=== PATIENT | male | born 1995 | race Two or more races ===

== ENCOUNTER 2018-09-21 09:48 | Emergency (ER) | payer SELFPAY ==
[~2018-09-21] VITALS: Ht 172.7 cm; Wt 61.2 kg
[2018-09-21] MEDS ORDERED: cefTRIAXone SOD 1,000 MG VL IM ONE (11:15)
[2018-09-21 11:26] VITALS: BP 124/83
== END 2018-09-21 11:59 | disposition home or self-care (01) ==
LOC: ER 09:48
DX: L02.415 Cutaneous abscess of right lower limb (principal); Z88.8 Allergy status to other drugs, medicaments and biological substances
CPT/HCPCS: 96372; 99283; J0696

== ENCOUNTER 2021-10-27 17:25 | Emergency (ER) | payer SELFPAY ==
[~2021-10-27] VITALS: Ht 172.7 cm; Wt 68.0 kg
[2021-10-27 17:27] VITALS: BP 137/90
== END 2021-10-27 22:59 | disposition left against medical advice (07) ==
LOC: ER 17:25
DX: R05.9 Cough, unspecified (principal); Z53.21 Procedure and treatment not carried out due to patient leaving prior to being seen by health care provider

== ENCOUNTER 2022-05-11 20:36 | Emergency (ER) | payer SELFPAY | END 2022-05-12 01:04 | LOC: ER 20:57 | DX: I10 Essential (primary) hypertension (principal) ==

== ENCOUNTER 2022-06-09 21:45 | Emergency (ER) | payer MEDICAID ==
[~2022-06-09] VITALS: Ht 172.7 cm; Wt 68.2 kg
[2022-06-10] MEDS ORDERED: IBUP800T27 PO (01:10)
[2022-06-10] MEDS ORDERED: AMOX-277 PO (01:10)
[2022-06-10 01:51] VITALS: BP 132/78
== END 2022-06-10 01:51 | disposition home or self-care (01) ==
LOC: ER 21:47
DX: L03.011 Cellulitis of right finger (principal)
CPT/HCPCS: 10060

== ENCOUNTER 2022-07-23 08:34 | Emergency (ER) | payer MEDICAID ==
[~2022-07-23] VITALS: Ht 170.2 cm; Wt 72.3 kg
[~2022-07-23 08:34] MED LIST: AMOX-277 PO; IBUP800T27 PO
[2022-07-23 09:10] VITALS: BP 122/84
[2022-07-23] MEDS ORDERED: BACDST PO (09:19)
[2022-07-23] MEDS ORDERED: CEPH-510 PO (09:19)
[2022-07-23] MEDS ORDERED: cefTRIAXone SOD 1,000 MG VL IM ONE (09:30)
== END 2022-07-23 09:35 | disposition home or self-care (01) ==
LOC: ER 08:34
DX: L02.31 Cutaneous abscess of buttock (principal); L03.317 Cellulitis of buttock; Z88.8 Allergy status to other drugs, medicaments and biological substances; Z79.899 Other long term (current) drug therapy
CPT/HCPCS: 96372; 99283; J0696